=== PATIENT | female | born 1995 | race Caucasian/White ===

== ENCOUNTER → 2016-10-03 | Outpatient (CLI) | payer OTHER ==
[~2016-10-03] MED LIST: ACYCLOVIR800 MG PO; ALBUTEROL200 PUFFS/ IH; BACTRIM DS 8001 TA1 PO; CLARITIN10 MG PO; DEPO-PROVER150 MG/M1 IM; IRON TABLETS325 MG PO; KEFLEX 500MG.500 MG PO; LORTAB 5/500 501 TAB PO; MACROBID100 M3 PO; MOTRIN600 MG PO; MULTI VITAMINS1 TAB PO; NAPROXEN SODIU500 MG PO; PERCOCET 325 MG1 TA4 PO; PRENATAL PLUS1 TA1 PO; Prilosec20 MG PO; SEPTRA DS 800 M1 TAB PO; TESSALON PERLE200 MG PO; ZITHROMAX Z PA250 MG PO
[2016-10-07 11:25] LABS: Gest. Age on Collection Date 18.4; Results REPORT
[2016-10-07 11:26] LABS: AFP Value 38.6; Insulin Dep Diabetes NO; Maternal Age At EDD 23.9; hCG Value 17481
[2016-10-07 11:27] LABS: DIA MoM 2.12; DIA Value 398.19; DSR (Second Trimester) 1 IN 2187; Interpretation SCREEN NEGATIVE; OSBR Risk 1 IN 10000; uE3 MoM 1.34; uE3 Value 1.99
== END ==
LOC: LAB 17:08
PROVIDERS: Obstetrics & Gynecology
DX: Z36 Encounter for antenatal screening of mother (principal)

== ENCOUNTER 2016-11-03 17:44 | Outpatient (CLI) | payer OTHER ==
[~2016-11-03] VITALS: Ht 160 cm; Wt 64.9 kg
[2016-11-03 18:00] VITALS: BP 112/62
[2016-11-03 19:14] LABS: URINE BILIRUBIN - DIPSTICK NEGATIVE (NEG); URINE BLOOD TRACE-INTACT (NEG)
[2016-11-03 19:27] LABS: URINE SQUAMOUS CELLS 20-50 #/hpf (0-5)
--- NOTE | 2016-11-04 07:34 | RADIOLOGY REPORT PS360 ---
US BIOPHYSICAL PROFILE: Indication: QUESTIONABLE RUPTURE OF MEMBRANES ORDERING PHYSICIAN: Isaac Buck MD PATIENT AGE: 21 years FINDINGS: There is a single live fetus present in breech presentation. The placenta is posterior in implantation without previa or abruption. The following parameters are obtained: Average ultrasound age is 22 weeks 5 days. Estimated due date by ultrasound is 03/04/2017. Estimated weight is not estimated BPD: 22 weeks 6 days OFD: 23 weeks 2 days HC: 22 weeks 4 days AC: Not obtained FL: Not obtained heart rate: 149 bpm. Qualitative AFV: 2 breathing movements: 2 Gross body movements: 2 Tone: 2 Biophysical profile score: 8/8 No gross anomalies evident.. This exam is NOT performed as anatomy evaluation. Placenta: Posterior Cervix: Appears closed and measures 3 cm IMPRESSION: Single live fetus in breech presentation at 22 weeks 5 days with normal biophysical profile 8 of 8. Please see above for detail
== END 2016-11-03 19:30 | disposition home or self-care (01) ==
LOC: OBOUT 17:44 → OB 17:44 → OBOUT 19:30
PROVIDERS: Obstetrics & Gynecology
DX: O26.92 Pregnancy related conditions, unspecified, second trimester (principal); Z3A.22 22 weeks gestation of pregnancy; R10.9 Unspecified abdominal pain

== ENCOUNTER → 2016-11-25 | Outpatient (CLI) | payer OTHER, MEDICAID ==
[2016-11-25 17:45] LABS: 1 HR URINE GLUCOSE NEGATIVE mg/ml
[2016-11-25 17:58] LABS: HEMOGLOBIN 11.7 g/dL (12.2-16.2); LYMPH # 2.5 K/mm3 (0.7-4.5); LYMPH % 21.4 % (10-50.0)
== END ==
LOC: LAB 16:13
PROVIDERS: Obstetrics & Gynecology
DX: Z13.1 Encounter for screening for diabetes mellitus (principal)

== ENCOUNTER 2016-12-30 06:47 | Outpatient (CLI) | payer OTHER, MEDICAID ==
[~2016-12-30] VITALS: Ht 160 cm; Wt 68.0 kg
[2016-12-30 07:00] VITALS: BP 104/59
[2016-12-30 08:10] LABS: URINE BILIRUBIN - DIPSTICK NEGATIVE (NEG); URINE BLOOD TRACE-INTACT (NEG)
[2016-12-30 08:33] LABS: URINE SQUAMOUS CELLS 20-50 #/hpf (0-5)
== END 2016-12-30 08:30 | disposition home or self-care (01) ==
LOC: OB 06:47 → OBOUT 06:47
PROVIDERS: Obstetrics & Gynecology
DX: O99.89 Other specified diseases and conditions complicating pregnancy, childbirth and the puerperium (principal); Z3A.30 30 weeks gestation of pregnancy; M79.605 Pain in left leg

== ENCOUNTER → 2017-01-16 | Outpatient (CLI) | payer OTHER, MEDICAID | LOC: LAB 18:05 | DX: Z36.85 Encounter for antenatal screening for Streptococcus B (principal) ==

== ENCOUNTER → 2017-02-24 | Outpatient (CLI) | payer OTHER, MEDICAID ==
[~2017-02-24] MED LIST changes: +FERROUS SULFAT200 M1 PO; +HYDROCODONE-APA1 TA1 PO; +PERCOCET 5/3251 EACH PO
[2017-02-24 09:21] LABS: URINE BILIRUBIN - DIPSTICK NEGATIVE (NEG); URINE BLOOD NEGATIVE (NEG)
[2017-02-24 09:22] LABS: HEMOGLOBIN 10.9 g/dL (12.2-16.2); LYMPH # 2.1 K/mm3 (0.7-4.5); LYMPH % 22.6 % (10-50.0)
[2017-02-24 09:36] LABS: URINE SQUAMOUS CELLS TNTC #/hpf (0-5)
[2017-02-24 12:00] LABS: BUN 4 mg/dL (7-18)
[2017-02-24 12:01] LABS: GFR (ESTIMATED) 124 ML/MIN (59-)
== END ==
LOC: LAB 08:45
PROVIDERS: Obstetrics & Gynecology
DX: Z01.812 Encounter for preprocedural laboratory examination (principal)

== ENCOUNTER 2017-02-27 02:37 | Inpatient (IN) | payer OTHER, MEDICAID ==
[~2017-02-27] VITALS: Ht 157.5 cm; Wt 72.1 kg
[~2017-02-27 02:37] MED LIST changes: -FERROUS SULFAT200 M1 PO; -HYDROCODONE-APA1 TA1 PO; -PERCOCET 5/3251 EACH PO
--- OUTSIDE RECORDS SUMMARY | 2017-02-27 02:50 | External Medical Summary Rpt | CCD ---
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 ON C LO 37 01 02 00 30 30 CL 20 AR Ac RA 20 -2 -1 .0 IN 96 NO ti TA 50 8- 1- 00 IC 83 LD ve DI 34 20 20 NE 67 10 10 PH RI 2 AR CH 10 MA AR CY D MG W TA BL ET AZ 59 01 01 00 6. 5 CL 20 AR Ac IT 76 -1 -2 00 IN 89 NO ti HR 23 5- 8- 0 IC 03 LD ve OM 06 20 20 YC 00 10 10 PH RI IN 1 AR CH MA AR 25 CY D 0 W MG TA BL ET TA 00 01 01 00 10 5 CL 20 AR Ac VT 00 -1 -2 .0 IN 90 NO ti FL 40 9- 8- 00 IC 53 LD ve U 80 20 20 75 08 10 10 PH RI 5 AR CH MG MA AR CY D CA W PS UL E ND 68 01 01 00 30 8 CL 20 AR Ac OM 38 -1 -2 .0 IN 89 NO ti ET 20 5- 8- 00 IC 04 LD ve RAMIREZ 04 20 20 ZI 10 10 10 PH RI NE 1 AR CH MA AR 25 CY D W MG TA BL ET CL 00 01 01 00 3. 3 CL 20 RAMIREZ Ac EO 00 -2 -2 00 IN 92 RP ti CI 97 1- 8- 0 IC 66 EL ve N 66 20 20 10 70 10 10 PH GE 0 1 AR RA MG MA LD CY R VA GI NA L OV UL E CL 00 12 12 00 3. 3 CL 20 RAMIREZ Ac EO 00 -1 -3 00 IN 71 RP ti CI 97 8- 1- 0 IC 02 EL ve N 66 20 20 10 70 09 09 PH GE 0 1 AR RA MG MA LD CY R VA GI NA L OV UL E LI 60 10 12 01 60 7 WA 70 AR Ac ND 43 -2 -1 .0 L- 43 NO ti AN 20 7- 7- 00 MA 08 LD ve E 83 20 20 RT 4 1% 36 09 09 RI 0 PH CH LO AR AR TI MA D ON CY W #5 91 ME 50 11 12 00 8. 2 CL 20 RAMIREZ Ac TR 11 -2 -0 00 IN 53 RP ti ON 10 3- 3- 0 IC 09 EL ve ID 33 20 20 AZ 40 09 09 PH GE OL 1 AR RA E MA LD 50 CY R 0 MG TA BL ET ME 59 11 11 00 21 6 CL 20 HE Ac TH 74 -0 -1 .0 IN 38 ND ti YL 60 2- 9- 00 IC 78 ER ve ND 00 20 20 SO ED 10 09 09 PH N NI 3 AR RO SO MA BE LO CY RT NE W 4 MG DO SE PK 54 11 11 00 30 30 WA 88 AR Ac 45 -1 -1 .0 L- 14 NO ti 80 1- 9- 00 MA 99 LD ve 94 20 20 RT 8 21 09 09 RI 0 PH CH AR AR MA D CY W #5 91 AZ 00 11 11 00 6. 5 WA 70 AR Ac IT 78 -1 -1 00 L- 45 NO ti HR 11 1- 9- 0 MA 20 LD ve OM 49 20 20 RT 9 YC 66 09 09 RI IN 8 PH CH AR AR 25 MA D 0 CY W MG #5 TA 91 BL ET FL 68 11 11 00 1. 1 CL 20 AR Ac UC 46 -0 -1 00 IN 42 NO ti ON 20 6- 9- 0 IC 56 LD ve AZ 10 20 20 OL 34 09 09 PH RI E 0 AR CH 15 MA AR 0 CY D MG W TA BL ET EN 60 11 11 00 20 3 CL 20 HE Ac DO 95 -0 -1 .0 IN 38 ND ti CE 10 2- 9- 00 IC 79 ER ve T 60 20 20 SO 5- 28 09 09 PH N 32 5 AR RO 5 MA BE TA CY RT BL W ET TE 51 11 11 00 45 7 WA 70 AR Ac RC 67 -0 -1 .0 L- 44 NO ti ON 21 7- 9- 00 MA 75 LD ve AZ 30 20 20 RT 0 OL 40 09 09 RI E 6 PH CH 0. AR AR 4% MA D CY W CR EA #5 M 91 AM 00 11 11 00 15 5 CL 20 HE Ac OX 78 -0 -1 .0 IN 38 ND ti IC 12 2- 9- 00 IC 77 ER ve IL 61 20 20 SO LI 30 09 09 PH N N 5 AR RO 50 MA BE 0 CY RT MG W CA PS UL E PE 00 10 11 00 59 1 CL 20 AR Ac RM 47 -2 -0 .0 IN 30 NO ti ET 25 0- 5- 00 IC 70 LD ve HR 24 20 20 IN 26 09 09 PH RI 7 AR CH 1% MA AR CY D LO W TI ON LI 60 10 11 00 60 7 WA 70 AR Ac ND 43 -2 -0 .0 L- 43 NO ti AN 20 7- 5- 00 MA 08 LD ve E 83 20 20 RT 4 1% 36 09 09 RI 0 PH CH LO AR AR TI MA D ON CY W #5 91 64 10 10 00 11 4 CL 20 AR Ac 37 -0 -2 8. IN 20 NO ti 60 5- 2- 00 IC 13 LD ve 72 20 20 0 74 09 09 PH RI 0 AR CH MA AR CY D W CE 00 10 10 00 20 10 CL 20 AR Ac FD 78 -0 -2 .0 IN 20 NO ti IN 12 5- 2- 00 IC 14 LD ve IR 17 20 20 66 09 09 PH RI 30 0 AR CH 0 MA AR MG CY D W CA PS UL E FL 00 10 10 00 5. 5 RI 80 AR Ac UC 17 -1 -2 00 TE 44 NO ti ON 25 6- 2- 0 81 LD ve AZ 41 20 20 AI OL 34 09 09 D RI E 6 PH CH 20 AR AR 0 M D MG #3 W 93 TA 8 BL ET LO 37 10 10 00 30 30 CL 20 AR Ac RA 20 -0 -2 .0 IN 20 NO ti TA 50 5- 2- 00 IC 15 LD ve DI 34 20 20 NE 67 09 09 PH RI 2 AR CH 10 MA AR CY D MG W TA BL ET ND 68 09 10 00 30 8 CL 20 AR Ac OM 38 -3 -0 .0 IN 17 NO ti ET 20 0- 8- 00 IC 18 LD ve RAMIREZ 04 20 20 ZI 10 09 09 PH RI NE 1 AR CH MA AR 25 CY D W MG TA BL ET AZ 00 09 10 00 6. 5 CL 20 AR Ac IT 78 -3 -0 00 IN 17 NO ti HR 11 0- 8- 0 IC 16 LD ve OM 49 20 20 YC 66 09 09 PH RI IN 8 AR CH MA AR 25 CY D 0 W MG TA BL ET NE 24 09 10 00 10 7 CL 20 AR Ac OM 20 -3 -0 .0 IN 17 NO ti YC 80 0- 8- 00 IC 17 LD ve IN 63 20 20 -P 56 09 09 PH RI OL 2 AR CH YM MA AR YX CY D IN W -H C EA R SELF SP PE 00 09 09 00 59 1 CL 20 AR Ac RM 47 -0 -2 .0 IN 03 NO ti ET 25 8- 4- 00 IC 53 LD ve HR 24 20 20 IN 26 09 09 PH RI 7 AR CH 1% MA AR CY D LO W TI ON DI 00 09 09 00 60 30 CL 19 AR Ac CL 78 -0 -1 .0 IN 99 NO ti OF 11 1- 0- 00 IC 29 LD ve EN 78 20 20 AC 90 09 09 PH RI 1 AR CH SO MA AR D CY D EC W 75 MG TA B AZ 00 09 09 00 6. 5 CL 19 AR Ac IT 78 -0 -1 00 IN 99 NO ti HR 11 1- 0- 0 IC 26 LD ve OM 49 20 20 YC 66 09 09 PH RI IN 8 AR CH MA AR 25 CY D 0 W MG TA BL ET ND 37 09 09 00 28 28 CL 19 AR Ac IL 00 -0 -1 .0 IN 99 NO ti OS 00 1- 0- 00 IC 25 LD ve EC 45 20 20 50 09 09 PH RI OT 3 AR CH C MA AR 20 CY D .6 W MG TA BL ET 00 09 09 00 18 6 CL 19 AR Ac 47 -0 -1 0. IN 99 NO ti 21 1- 0- 00 IC 27 LD ve 63 20 20 0 01 09 09 PH RI 6 AR CH MA AR CY D W IB 53 08 09 00 30 10 CL 19 FL Ac UP 74 -2 -1 .0 IN 96 AN ti RO 60 6- 0- 00 IC 16 AG ve FE 46 20 20 AN N 50 09 09 PH 60 1 AR JA 0 MA ME MG CY S P TA BL ET IB 53 07 08 00 30 10 CL 19 FL Ac UP 74 -3 -1 .0 IN 79 AN ti RO 60 0- 3- 00 IC 96 AG ve FE 46 20 20 AN N 50 09 09 PH 60 1 AR JA 0 MA ME MG CY S P TA BL ET 00 07 08 00 10 2 CL 19 FL Ac 40 -2 -1 .0 IN 79 AN ti 60 9- 3- 00 IC 97 AG ve 35 20 20 AN 70 09 09 PH 5 AR JA MA ME CY S P AZ 00 06 07 00 2. 2 WA 70 CL Ac IT 09 -1 -0 00 L- 25 AR ti HR 37 7- 2- 0 MA 01 KE ve OM 16 20 20 RT 0 YC 95 09 09 DE IN 6 PH RE AR K 50 MA J 0 CY MG #5 TA 91 BL ET 00 06 07 00 14 7 WA 70 CL Ac 59 -1 -0 .0 L- 25 AR ti 13 7- 2- 00 MA 01 KE ve 97 20 20 RT 1 05 09 09 DE 0 PH RE AR K MA J CY #5 91 LI 60 06 06 00 60 1 RI 78 MO Ac ND 43 -0 -1 .0 TE 64 SE ti AN 20 1- 8- 00 13 S ve E [address] 1% 46 09 09 D EP 0 PH HE SH AR N AM M A PO #3 O 93 8 CE 68 05 06 00 30 8 CL 19 WR Ac PH 18 -2 -0 .0 IN 41 IG ti AL 00 0- 4- 00 IC 12 HT ve EX 12 20 20 IN 20 09 09 PH AR 1 AR DY 50 MA C 0 CY MG CA PS UL E LI 60 05 05 00 60 1 RI 78 AR Ac ND 43 -0 -2 .0 TE 26 NO ti AN 20 4- 1- 00 51 LD ve E 83 20 20 AI 1% 46 09 09 D RI 0 PH CH SH AR AR AM M D PO #3 W O 93 8 ME 59 05 05 00 21 6 CL 19 AR Ac TH 74 -0 -2 .0 IN 34 NO ti YL 60 9- 1- 00 IC 19 LD ve ND 00 20 20 ED 10 09 09 PH RI NI 3 AR CH SO MA AR LO CY D NE W 4 MG DO SE PK ND 37 04 05 00 28 28 CL 19 AR Ac IL 00 -2 -0 .0 IN 21 NO ti OS 00 0- 7- 00 IC 17 LD ve EC 45 20 20 50 09 09 PH RI OT 3 AR CH C MA AR 20 CY D .6 W MG TA BL ET SE 51 04 05 00 91 91 CL 19 CL Ac 28 -2 -0 .0 IN 22 AR ti ON 50 2- 7- 00 IC 76 KE ve IQ 08 20 20 UE 78 09 09 PH DE 7 AR RE 0. MA K 15 CY J -0 .0 3- 0. 01 TA B LI 60 03 05 01 60 14 RI 77 AR Ac ND 43 -1 -0 .0 TE 53 NO ti AN 20 4- 7- 00 58 LD ve E 83 20 20 AI 1% 36 09 09 D RI 0 PH CH LO AR AR TI M D ON #3 W 93 8 DI 00 05 05 00 12 30 CL 19 CL Ac CY 37 -0 -0 0. IN 28 AR ti CL 81 1- 7- 00 IC 39 KE ve OM 61 20 20 0 IN 00 09 09 PH DE E 1 AR RE 10 MA K CY J MG CA PS UL E PO 51 05 05 00 52 31 CL 19 CL Ac LY 99 -0 -0 7. IN 28 AR ti ET 10 1- 7- 00 IC 38 KE ve HY 45 20 20 0 LE 75 09 09 PH DE NE 7 AR RE MA K GL CY J YC OL 33 50 PO WD PE 45 04 05 00 60 1 CL 19 AR Ac RM 80 -2 -0 .0 IN 23 NO ti ET 20 3- 7- 00 IC 52 LD ve HR 26 20 20 IN 93 09 09 PH RI 7 AR CH 5% MA AR CY D CR W EA M ND 00 04 05 00 30 8 RI 78 AR Ac OM 78 -2 -0 .0 TE 19 NO ti ET 11 8- 7- 00 17 LD ve RAMIREZ 83 20 20 AI ZI 00 09 09 D RI NE 1 PH CH AR AR 25 M D #3 W MG 93 8 TA BL ET DI 00 03 03 00 20 5 CL 19 NO Ac CY 37 -2 -2 .0 IN 00 RF ti CL 81 0- 6- 00 IC 64 LE ve OM 61 20 20 ET IN 00 09 09 PH R E 1 AR 10 MA HE CY NR MG Y CA PS UL E LI 60 03 03 00 60 14 RI 77 AR Ac ND 43 -1 -2 .0 TE 53 NO ti AN 20 4- 6- 00 58 LD ve E 83 20 20 AI 1% 36 09 09 D RI 0 PH CH LO AR AR TI M D ON #3 W 93 8 PE 45 03 03 00 60 1 WA 70 AR Ac RM 80 -0 -2 .0 L- 11 NO ti ET 20 9- 6- 00 MA 44 LD ve HR 26 20 20 RT 7 IN 93 09 09 RI 7 PH CH 5% AR AR MA D CR CY W EA M #5 91 ME 68 01 01 00 30 30 CL 18 NO Ac LO 18 -1 -3 .0 IN 56 RF ti XI 00 3- 0- 00 IC 82 LE ve CA 50 20 20 ET M 10 09 09 PH R 7. 1 AR 5 MA HE MG CY NR Y TA BL ET MU 63 01 01 00 20 5 CL 18 CO Ac CI 82 -2 -3 .0 IN 62 OP ti NE 40 2- 0- 00 IC 97 ER ve X 05 20 20 DM 62 09 09 PH GUSTAVO 0 AR HN ER MA G CY 60 0- 30 MG TA BL ET AZ 50 01 01 00 6. 5 CL 18 CO Ac IT 11 -2 -3 00 IN 62 OP ti HR 10 2- 0- 0 IC 96 ER ve OM 78 20 20 YC 76 09 09 PH GUSTAVO IN 6 AR HN MA G 25 CY 0 MG TA BL ET 64 01 01 00 28 28 CL 18 MU Ac 01 -0 -1 .0 IN 54 LB ti 10 8- 5- 00 IC 07 ER ve 20 20 20 RY 73 09 09 PH 4 AR BR MA IA CY N T QC 63 09 01 01 30 30 CL 17 CO Ac 86 -3 -1 .0 IN 90 OP ti LO 80 0- 5- 00 IC 18 ER ve RA 15 20 20 TA 10 08 09 PH GUSTAVO DI 1 AR HN NE MA G CY 10 MG TA BL ET ND 37 09 01 02 28 28 CL 17 CO Ac IL 00 -3 -1 .0 IN 90 OP ti OS 00 0- 5- 00 IC 19 ER ve EC 45 20 20 50 08 09 PH GUSTAVO OT 3 AR HN C MA G 20 CY .6 MG TA BL ET PE 00 12 01 00 59 1 RI 76 MU Ac RM 47 -2 -1 .0 TE 42 LB ti ET 25 8- 5- 00 36 ER ve HR 24 20 20 AI RY IN 26 08 09 D 7 PH BR 1% AR IA M N LO #3 T TI 93 ON 8 ND 37 09 12 01 30 28 CL 17 CO Ac IL 00 -3 -1 .0 IN 90 OP ti OS 00 0- 8- 00 IC 19 ER ve EC 45 20 20 50 08 08 PH GUSTAVO OT 3 AR HN C MA G 20 CY .6 MG TA BL ET FE 00 12 12 00 30 30 CL 18 RAMIREZ Ac RR 57 -0 -1 .0 IN 31 MM ti OU 40 3- 8- 00 IC 56 ON ve S 60 20 20 D SELF 81 08 08 PH KA LF 0 AR TH MA AR EC CY IN E 32 Y 4 MG TA BL ET 66 11 12 00 24 12 CL 18 MU Ac 99 -2 -0 0. IN 25 LB ti 20 4- 4- 00 IC 34 ER ve 22 20 20 0 RY 00 08 08 PH 4 AR BR MA IA CY N T LI 60 10 11 00 60 1 WA 69 CO Ac ND 43 -2 -0 .0 L- 93 OP ti AN 20 9- 7- 00 MA 24 ER ve E 83 20 20 RT 5 1% 46 08 08 GUSTAVO 0 PH HN SH AR G AM MA PO CY O #5 91 ND 37 09 10 00 30 28 CL 17 No Ac IL 00 -3 -0 .0 IN 90 t ti OS 00 0- 9- 00 IC 19 Av ve EC 45 20 20 ai 50 08 08 PH la OT 3 AR bl C MA e 20 CY .6 MG TA BL ET QC 63 09 10 00 30 30 CL 17 No Ac 86 -3 -0 .0 IN 90 t ti LO 80 0- 9- 00 IC 18 Av ve RA 15 20 20 ai TA 10 08 08 PH la DI 1 AR bl NE MA e CY 10 MG TA BL ET QC 63 08 09 00 30 30 CL 17 No Ac 86 -2 -1 .0 IN 69 t ti LO 80 8- 1- 00 IC 51 Av ve RA 15 20 20 ai TA 10 08 08 PH la DI 1 AR bl NE MA e CY 10 MG TA BL ET 24 08 09 00 40 20 CL 17 No Ac 48 -2 -1 .0 IN 69 t ti 60 8- 1- 00 IC 52 Av ve 60 20 20 ai 21 08 08 PH la 0 AR bl MA e CY ND 37 08 09 00 28 28 CL 17 No Ac IL 00 -2 -1 .0 IN 69 t ti OS 00 8- 1- 00 IC 53 Av ve EC 45 20 20 ai 50 08 08 PH la OT 3 AR bl C MA e 20 CY .6 MG TA BL ET DE 51 06 06 00 15 5 CL 17 No Ac SO 67 -0 -1 .0 IN 21 t ti XI 21 6- 2- 00 IC 34 Av ve ME 27 20 20 ai TA 10 08 08 PH la SO 1 AR bl NE MA e CY 0. 05 % CR EA M NY 00 05 06 00 30 7 CL [address] 16 -2 -0 .0 IN 11 t ti AT 80 1- 5- 00 IC 61 Av ve IN 05 20 20 ai 43 08 08 PH la 10 0 AR bl 0, MA e 00 CY 0 UN IT /G M CR EA M FL 68 05 06 00 1. 1 CL 17 No Ac UC 46 -2 -0 00 IN 11 t ti ON 20 1- 5- 0 IC 62 Av ve AZ 10 20 20 ai OL 34 08 08 PH la E 0 AR bl 15 MA e 0 CY MG TA BL ET ND 37 11 06 02 28 28 CL 15 No Ac IL 00 -2 -0 .0 IN 97 t ti OS 00 8- 5- 00 IC 88 Av ve EC 45 20 20 ai 50 07 08 PH la OT 3 AR bl C MA e 20 CY .6 MG TA BL ET QC 63 01 06 01 30 30 CL 16 No Ac 86 -3 -0 .0 IN 37 t ti LO 80 1- 5- 00 IC 19 Av ve RA 15 20 20 ai TA 10 08 08 PH la DI 1 AR bl NE MA e CY 10 MG TA BL ET 52 05 05 00 10 4 CL 17 No Ac 15 -1 -2 .0 IN 06 t ti 20 3- 2- 00 IC 39 Av ve 00 20 20 ai 30 08 08 PH la 2 AR bl MA e CY 63 05 05 00 14 7 CL 17 No Ac 30 -1 -2 .0 IN 06 t ti 40 3- 2- 00 IC 40 Av ve 51 20 20 ai 80 08 08 PH la 1 AR bl MA e CY 66 04 04 00 24 24 CL 16 No Ac 99 -0 -2 0. IN 83 t ti 20 7- 4- 00 IC 97 Av ve 22 20 20 0 ai 00 08 08 PH la 4 AR bl MA e CY LI 60 03 04 00 60 30 RI 72 No Ac ND 43 -0 -1 .0 TE 35 t ti AN 20 8- 7- 00 49 Av ve E 83 20 20 AI ai 1% 46 08 08 D la 0 PH bl SH AR e AM M PO #3 O 93 8 ME 59 03 04 00 21 6 CL 16 No Ac TH 74 -2 -1 .0 IN 75 t ti YL 60 5- 0- 00 IC 76 Av ve ND 00 20 20 ai ED 10 08 08 PH la NI 3 AR bl SO MA e LO CY NE 4 MG DO SE PK QC 63 01 03 00 30 30 CL 16 No Ac 86 -3 -2 .0 IN 37 t ti LO 80 1- 6- 00 IC 19 Av ve RA 15 20 20 ai TA 10 08 08 PH la DI 1 AR bl NE MA e CY 10 MG TA BL ET ND 37 11 03 01 28 28 CL 15 No Ac IL 00 -2 -2 .0 IN 97 t ti OS 00 8- 6- 00 IC 88 Av ve EC 45 20 20 ai 50 07 08 PH la OT 3 AR bl C MA e 20 CY .6 MG TA BL ET VE 00 01 03 00 18 10 CL 16 No Ac NT 17 -3 -2 .0 IN 37 t ti OL 30 1- 6- 00 IC 18 Av ve IN 68 20 20 ai 22 08 08 PH la HF 0 AR bl A MA e 90 CY MC G IN RAMIREZ LE R LI 60 01 03 00 60 1 CL 16 No Ac ND 43 -3 -2 .0 IN 37 t ti AN 20 1- 6- 00 IC 20 Av ve E 83 20 20 ai 1% 46 08 08 PH la 0 AR bl SH MA e AM CY PO O LI 60 01 03 00 60 1 CL 16 No Ac ND 43 -0 -2 .0 IN 22 t ti AN 20 8- 4- 00 IC 52 Av ve E 83 20 20 ai 1% 46 08 08 PH la 0 AR bl SH MA e AM CY PO O Results Labs Lab Lab Date Result Refere Interp Status Commen Order Detail nces retati t Range on CBC w auto diff (02-24-2017 08:47) Baso % = 0.4 % 0.1-2.0 complet 017 ed 08:47 Automat = 0.0 0-0.2 complet ed 017 K/MM3 ed blood 08:47 basophi l count (count/ vo Automat = 0.1 0.0-0.4 complet ed 017 K/mm3 ed blood 08:47 eosinop hil count Automat = 1.5 % 0.1-12. complet ed 017 0 ed blood 08:47 eosinop hils/10 0 leukocy t Blood = 6.5 1.8-7.8 complet granulo 017 K/mm3 ed cytes 08:47 automat ed count (numb Granulo = 70.0 37.0-80 complet cyte 017 % .0 ed percent 08:47 age Blood = 33.1 37.0-47 complet hematoc 017 % .0 ed rit 08:47 (volume fractio n) Blood = 10.9 12.2-16 complet hemoglo 017 g/dL .2 ed bin 08:47 measure ment (mass/v olum Absolut = 2.1 0.7-4.5 complet e 017 K/mm3 ed lymphoc 08:47 yte count Lymphoc = 22.6 10-50.0 complet yte 017 % ed count, 08:47 blood, automat ed Mean = 29.4 27-31.2 complet corpusc 017 pg ed ular 08:47 hemoglo bin (MCH) determ Automat = 33.1 31.8-35 complet ed 017 g/dl .4 ed erythro 08:47 cyte mean corpusc ular h Automat = 88.8 82.2-97 complet ed 017 fl .8 ed erythro 08:47 cyte mean corpusc ular v Absolut = 0.5 0.1-1.0 complet e 017 K/mm3 ed monocyt 08:47 e count [place] % = 5.5 % 1.7-9.3 complet 017 ed 08:47 Automat = 9.3 7.4-10. complet ed 017 fl 4 ed blood 08:47 platele t mean volume heather Blood = 265 142-424 complet platele 017 K/mm3 ed t count 08:47 Red = 3.73 4.2-5.4 complet blood 017 M/mm3 ed cell 08:47 count Automat = 12.7 11.5-17 complet ed 017 % .5 ed erythro 08:47 cyte distrib ution width Blood = 9.3 4.8-10. complet leukocy 017 K/MM3 8 ed gen 08:47 count (number /volume ) Urinalysis with microscopy (02-24-2017 08:47) Bacteri 3+ 3+ L O complet a 017 ed detecti 08:47 on in urine sedimen t by Urine NEGATIV NEG complet nitrite 017 E ed 08:47 NEGATIV detecti E L on by test strip Urine = 6.5 5.0-8.5 complet pH 017 ed 08:47 Urine = TRACE NEG complet protein 017 mg/dL ed 08:47 measure ment by automat ed t Erythro NONE 0 complet cytes 017 NONE L ed detecti 08:47 rbc/hpf on in urine sedimen t Urine = 1.020 1.005-1 complet specifi 017 .030 ed c 08:47 gravity measure ment [place] TNTC 0-5 complet s 017 TNTC L ed epithel 08:47 #/hpf ial cells detecti on in u Urine 0.2 0.2 NEG complet urobili 017 L ed nogen 08:47 E.U./dL detecti on by test str Urine = OCC O complet leukocy 017 wbc/hpf ed gen 08:47 count (number /volume ) Urine CLEAR CLEAR complet appeara 017 CLEAR L ed nce 08:47 determi nation Urine NEGATIV NEG complet total 017 E ed bilirub 08:47 NEGATIV in E L detecti on by test Urine NEGATIV NEG complet blood 017 E ed detecti 08:47 NEGATIV on E L Urine YELLOW YELLOW complet color 017 YELLOW ed 08:47 L Glucose = NEG complet ur 017 NEGATIV ed test 08:47 E strip Urine NEGATIV NEG complet ketones 017 E ed 08:47 NEGATIV detecti E L on by mg/dL automat ed gen Mucus NEGATIV NEG complet detecti 017 E ed on in 08:47 NEGATIV urine E L sedimen t by lig Comprehensive metabolic panel (02-24-2017 08:47) Serum = 211 46-116 complet or 017 U/L ed plasma 08:47 alkalin e phospha tase heather Serum 2 = 0.5 0.2-1.0 complet or 017 mg/dL ed plasma 08:47 total bilirub in measure m Serum = 4 7-18 complet or 017 mg/dL ed plasma 08:47 urea nitroge n measure men Serum 02-24-2 = 8.3 8.5-10. complet or 017 mg/dL 1 ed plasma 08:47 calcium measure ment (mas Serum = 103 98-107 complet or 017 mmoL/L ed plasma 08:47 chlorid e measure ment (mo Carbon = 24 21.0-32 complet dioxide 017 mmoL/L .0 ed 08:47 measure ment Serum 2 = 0.6 0.55-1. complet or 017 mg/dL 02 ed plasma 08:47 creatin ine measure ment ( Estimat = 124 59- complet ed 017 ML/MIN ed glomeru 08:47 lar filtrat ion rate (GF Comment: REFERENCE RANGE: >60 ML/MIN/1.73 SQUARE METERS Comment: If this patient is -[place], then multiply the Comment: result by 1.210. Serum = 3.4 1.3-3.2 complet globuli 017 gm/dL ed n 08:47 measure ment (mass/v olume) Serum = 71 74-106 complet or 017 mg/dL ed plasma 08:47 glucose measure ment (mas Serum = 4.1 3.5-5.1 complet potassi 017 mmoL/L ed um 08:47 measure ment Serum = 136 136-145 complet sodium 017 mmoL/L ed measure 08:47 ment Serum = 13 15-37 complet or 017 U/L ed plasma 08:47 asparta te aminotr ansfera ALT = 12 12-78 complet (SGPT) 017 U/L ed ser/yoav 08:47 s Protein = 6.1 6.4-8.2 complet total 017 gm/dL ed ser/yoav 08:47 s Serum = 0.8 1.1-1.8 complet or 017 ed plasma 08:47 albumin /globul in mass ra Serum = 2.7 3.4-5.0 complet or 017 gm/dL ed plasma 08:47 albumin measure ment (mas Urinalysis dipstick W Reflex Microscopic panel in Urine (02-24-2017 08:47) Bacteri 02-24-2 3+ O complet a 017 ed [Presen 08:47 ce] in Urine sedimen t by Light microsc opy Erythro 02-24-2 NONE 0 complet cytes 017 ed [Presen 08:47 ce] in Urine sedimen t by Light microsc opy Epithel 02-24-2 TNTC 0#/hp complet ial 017 f - ed cells.s 08:47 5#/hp quamous f [Presen ce] in Urine sedimen t by Microsc opy high power field Urinalysis dipstick W Reflex Microscopic panel in Urine (02-24-2017 08:47) Appeara 02-24-2 CLEAR CLEAR complet nce of 017 ed Urine 08:47 Bilirub 02-24-2 NEGATIV NEG complet in 017 E ed [Presen 08:47 ce] in Urine by Test strip Erythro 02-24-2 NEGATIV NEG complet cytes 017 E ed [Presen 08:47 ce] in Urine Color 02-24-2 YELLOW YELLOW complet of 017 ed Urine 08:47 Ketones -17-2 NEGATIV NEG complet 017 E ed [Presen 08:47 ce] in Urine by Automat ed test strip Mucus -17-2 NEGATIV NEG complet [Presen 017 E ed ce] in 08:47 Urine sedimen t by Light microsc opy Nitrite --2 NEGATIV NEG complet 017 E ed [Presen 08:47 ce] in Urine by Test strip Urobili -17-2 0.2 NEG complet nogen 017 ed [Presen 08:47 ce] in Urine by Test strip Urinalysis with microscopy (02-10-2017 17:58) Comment: Collected by nurse? Y Comment: Hold specimen in OE? N Urine 02-10-2 TURBID CLEAR complet appeara 017 TURBID ed nce 17:58 L determi nation Bacteri 02-10- 4+ 4+ L O complet a 017 ed detecti 17:58 on in urine sedimen t by Urine NEGATIV NEG complet total 017 E ed bilirub 17:58 NEGATIV in E L detecti on by test Urine 3+ 3+ L NEG complet blood 017 ed detecti 17:58 on Urine YELLOW YELLOW complet color 017 YELLOW ed 17:58 L Glucose = NEG complet ur 017 NEGATIV ed test 17:58 E strip Urine NEGATIV NEG complet ketones 017 E ed 17:58 NEGATIV detecti E L on by mg/dL automat ed gen Mucus NEGATIV NEG complet detecti 017 E ed on in 17:58 NEGATIV urine E L sedimen t by lig Mucus 2+ 2+ L OCC complet detecti 017 ed on in 17:58 urine sedimen t by lig Urine NEGATIV NEG complet nitrite 017 E ed 17:58 NEGATIV detecti E L on by test strip Urine = 6.5 5.0-8.5 complet pH 017 ed 17:58 Urine = NEG complet protein 017 NEGATIV ed 17:58 E mg/dL measure ment by automat ed t Erythro 10-20 0 complet cytes 017 10-20 L ed detecti 17:58 on in rbc/hpf urine sedimen t Urine = 1.015 1.005-1 complet specifi 017 .030 ed c 17:58 gravity measure ment [place] 10-20 0-5 complet s 017 10-20 L ed epithel 17:58 #/hpf ial cells detecti on in u Urine 0.2 0.2 NEG complet urobili 017 L ed nogen 17:58 E.U./dL detecti on by test str Urine 10 - 20 O complet leukocy 017 ed gen 17:58 wbc/hpf count (number /volume ) Urinalysis dipstick W Reflex Microscopic panel in Urine (02-10-2017 17:58) Bacteri 4+ O complet a 017 ed [Presen 17:58 ce] in Urine sedimen t by Light microsc opy Mucus 2+ OCC complet [Presen 017 ed ce] in 17:58 Urine sedimen t by Light microsc opy Erythro -- 10-20 0 complet cytes 017 ed [Presen 17:58 ce] in Urine sedimen t by Light microsc opy Epithel 02-10- 10-20 0#/hp complet ial 017 f - ed cells.s 17:58 5#/hp quamous f [Presen ce] in Urine sedimen t by Microsc opy high power field Leukocy 02-10- 10-20 O complet gen 017 wbc/hpf ed [#/volu 17:58 me] in Urine Urinalysis dipstick W Reflex Microscopic panel in Urine (02-10-2017 17:58) [place]ara TURBID CLEAR complet nce of 017 ed Urine 17:58 Bilirub NEGATIV NEG complet in 017 E ed [Presen 17:58 ce] in Urine by Test strip Erythro 3+ NEG Abnorma complet cytes 017 l ed [Presen 17:58 ce] in Urine Color YELLOW YELLOW complet of 017 ed Urine 17:58 Ketones NEGATIV NEG complet 017 E ed [Presen 17:58 ce] in Urine by Automat ed test strip Mucus NEGATIV NEG complet [Presen 017 E ed ce] in 17:58 Urine sedimen t by Light microsc opy Nitrite NEGATIV NEG complet 017 E ed [Presen 17:58 ce] in Urine by Test strip Urobili 0.2 NEG complet nogen 017 ed [Presen 17:58 ce] in Urine by Test strip Urinalysis dipstick W Reflex Microscopic panel in Urine (12-30-2016 07:11) Amorpho 12-30-2 2+ NONE complet us 017 ed sedimen 07:11 t [Presen ce] in Urine sedimen t by Light microsc opy Bacteri 12-30-2 2+ O complet a 017 ed [Presen 07:11 ce] in Urine sedimen t by Light microsc opy Epithel 12-30-2 20-50 0#/hp complet ial 017 f - ed cells.s 07:11 5#/hp quamous f [Presen ce] in Urine sedimen t by Microsc opy high power field Leukocy 10-20 O complet gen 017 wbc/hpf ed [#/volu 07:11 me] in Urine Urinalysis dipstick W Reflex Microscopic panel in Urine (12-30-2016 07:11) Appeara CLOUDY CLEAR complet nce of 017 ed Urine 07:11 Bilirub NEGATIV NEG complet in 017 E ed [Presen 07:11 ce] in Urine by Test strip Erythro TRACE-I NEG complet cytes 017 NTACT ed [Presen 07:11 ce] in Urine Color YELLOW YELLOW complet of 017 ed Urine 07:11 Ketones NEGATIV NEG complet 017 E ed [Presen 07:11 ce] in Urine by Automat ed test strip Mucus 3+ NEG Abnorma complet [Presen 017 l ed ce] in 07:11 Urine sedimen t by Light microsc opy Nitrite NEGATIV NEG complet 017 E ed [Presen 07:11 ce] in Urine by Test strip Urobili 0.2 NEG complet nogen 017 ed [Presen 07:11 ce] in Urine by Test strip Glucose [Presence] in Urine by Test strip --1 hour post 75 g glucose PO (11-25-2016 16:13) Glucose NEGATIV complet 017 E ed [Presen 16:13 ce] in Urine by Test strip Glucose TNP complet 017 ed [Presen 16:13 ce] in Urine by Automat ed test strip Fasting TNP 60mg/ complet 017 dL - ed glucose 16:13 105mg /dL [Mass/v olume] in Serum or Plasma [id number]-Dheluygsaakjl.placental [Presence] in Vaginal fluid (11-03-2016 18:07) Alpha-1 NEGATIV complet -Microg 017 E FOR ed lobulin 18:07 RUPTURE .placen walter [Presen ce] in Vaginal fluid Urinalysis dipstick W Reflex Microscopic panel in Urine (11-03-2016 17:54) Bacteri 4+ O complet a 017 ed [Presen 17:54 ce] in Urine sedimen t by Light microsc opy Erythro 3-5 0 complet cytes 017 ed [Presen 17:54 ce] in Urine sedimen t by Light microsc opy Epithel 20-50 0#/hp complet ial 017 f - ed cells.s 17:54 5#/hp quamous f [Presen ce] in Urine sedimen t by Microsc opy high power field Leukocy 10-20 O complet gen 017 wbc/hpf ed [#/volu 17:54 me] in Urine Urinalysis dipstick W Reflex Microscopic panel in Urine (11-03-2016 17:54) Appeara CLEAR CLEAR complet nce of 017 ed Urine 17:54 Bilirub NEGATIV NEG complet in 017 E ed [Presen 17:54 ce] in Urine by Test strip Erythro TRACE-I NEG complet cytes 017 NTACT ed [Presen 17:54 ce] in Urine Color YELLOW YELLOW complet of 017 ed Urine 17:54 Ketones NEGATIV NEG complet 017 E ed [Presen 17:54 ce] in Urine by Automat ed test strip Mucus 3+ NEG Abnorma complet [Presen 017 l ed ce] in 17:54 Urine sedimen t by Light microsc opy Nitrite NEGATIV NEG complet 017 E ed [Presen 17:54 ce] in Urine by Test strip Urobili 0.2 NEG complet nogen 017 ed [Presen 17:54 ce] in Urine by Test strip Procedures Procedure DOS Code Location Performer Comment EXCISION 544 [facility]UCEDA OR 1 [facility] DESTRUCTI INC INC ON OF PERITONEA L TISSUE Encounters Encounter Start End Date Code Location Per[facility] Type Date [facility] 5 [facility] OUTPATIEN [facility] KOMAL - 2 2 [facility]PATI[facility] KOMAL - 2 2 [facility]PATI[facility] KOMAL - 2 2 [facility] KOMAL - 1 1 [facility] KOMAL - 1 1 [facility]IVERS[facility] - 1 1 [facility] - 1 [facility]
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
--- OUTSIDE RECORDS SUMMARY | 2017-02-27 03:02 | External Medical Summary Rpt | CCD ---
Author Author , BRIAN TORRES Address Unknown Phone [email or web address] Immunization Name Date Rout CVX Reac Dose Comm Prov Is Faci e tion ent ider Refu lity Give sed n Tdap 03- 115 999 Hist H149 No H149 , 8-20 oric Adso 14 al rbed Info rmat ion - Sour ce Unsp ecif ied True - 2 999 Hist H149 No H149 o-OP 5-19 oric V 98 al Info rmat ion - Sour ce Unsp ecif ied DTaP - 107 999 Hist H149 No H149 , UF 5-19 oric 98 al Info rmat ion - Sour ce Unsp ecif ied MMR 01- 3 999 Hist H149 No H149 5-19 oric 98 al Info rmat ion - Sour ce Unsp ecif ied
--- OUTSIDE RECORDS SUMMARY | 2017-02-27 03:02 | External Medical Summary Rpt | CCD ---
Author Author , BRIAN TORRES Address Unknown Phone [email or web address] Immunization Name Date Rout CVX Reac Dose [...]
--- OUTSIDE RECORDS SUMMARY | 2017-02-27 03:03 | External Medical Summary Rpt ---
Author Author BRIAN Riojas, [employer] Address Unknown Phone Unavailable Results Comprehensive metabolic 2000 panel in Serum or Plasma Observa Value Referen Units Interpr Notes Date tion ce etation Range Albumin/G 1.1 - 1.8 No Low No Feb 24 lobulin informati informati 2016 8:47 [Mass on in on in AM ratio] in source source Serum or data data Plasma Albumin 3.4 - 5.0 gm/dL Low No Feb 24 [Mass/vol informati 2016 8:47 ume] in on in AM Serum or source Plasma data Alkaline 46 - 116 U/L High No Feb 24 phosphata informati 2016 8:47 se on in AM [Enzymati source c data activity/ volume] in Serum or Plasma Bilirubin 0.2 - 1.0 mg/dL Normal No Feb 24 .total informati 2016 8:47 [Mass/vol on in AM ume] in source Serum or data Plasma Urea 7 - 18 mg/dL Low No Feb 24 nitrogen informati 2016 8:47 [Mass/vol on in AM ume] in source Serum or data Plasma Calcium 8.5 - mg/dL Low No Feb 24 [Mass/vol 10.1 informati 2016 8:47 ume] in on in AM Serum or source Plasma data Chloride 98 - 107 mmoL/L Normal No Feb 24 [Moles/vo informati 2016 8:47 lume] in on in AM Serum or source Plasma data Carbon 21.0 - mmoL/L Normal No Feb 24 dioxide, 32.0 informati 2016 8:47 total on in AM [Moles/vo source lume] in data Serum or Plasma Creatinin 0.55 - mg/dL Normal No Feb 24 e 1.02 informati 2016 8:47 [Mass/vol on in AM ume] in source Serum or data Plasma Estimated 59- ML/MIN No REFERENCE Feb 24 informati RANGE: 2017 8:47 glomerula on in >60 AM r source ML/MIN/1. filtratio data 73 SQUARE n rate METERSIf (GF this patient is -A merican, then multiply theresult by 1.210. Globulin 1.3 - 3.2 gm/dL High No Feb 24 [Mass/vol informati 2016 8:47 ume] in on in AM Serum source data Glucose 74 - 106 mg/dL Low No Feb 24 [Mass/vol informati 2016 8:47 ume] in on in AM Serum or source Plasma data Potassium 3.5 - 5.1 mmoL/L Normal No Feb 242016 8:47 [Moles/vo on in AM lume] in source Serum or data Plasma Sodium 136 - 145 mmoL/L Normal No Feb 24 [Moles/vo informati 2016 8:47 lume] in on in AM Serum or source Plasma data Aspartate 15 - 37 U/L Low No Feb 242016 8:47 aminotran on in AM sferase source [Enzymati data c activity/ volume] in Serum or Plasma Alanine 12 - 78 U/L Normal Feb 24 aminotran ati 2016 8:47 sferase on in AM [Enzymati source c data activity/ volume] in Serum or Plasma Protein 6.4 - 8.2 gm/dL Low No Feb 24 [Mass/vol informati 2016 8:47 ume] in on in AM Serum or source Plasma data Urinalysis dipstick W Reflex Microscopic panel in Urine Observa Value Referen Units Interpr Notes Date tion ce etation Range Appeara CLEAR CLEAR No No No Feb 24 nce of informa informa informa 2016 Urine tion in tion in tion in 8:47 AM source source source data data data Bacteri 3+ O No No No Feb 24 a informa informa informa 2016 [Presen tion in tion in tion in 8:47 AM ce] in source source source Urine data data data sedimen t by Light microsc opy Bilirub NEGATIV NEG No No No Feb 24 in E informa informa informa 2016 [Presen tion in tion in tion in 8:47 AM ce] in source source source Urine data data data by Test strip Erythro NEGATIV NEG No No No Feb 24 cytes E informa informa informa 2016 [Presen tion in tion in tion in 8:47 AM ce] in source source source Urine data data data Color YELLOW YELLOW No No No Feb 24 of informa informa informa 2017 Urine tion in tion in tion in 8:47 AM source source source data data data Glucose NEG No No No Feb 24 [Mass/vol informati informati informati 2016 8:47 ume] in on in on in on in AM Urine by source source source Test data data data strip Ketones NEGATIV NEG mg/dL No No Feb 24 E informa informa 2016 [Presen tion in tion in 8:47 AM ce] in source source Urine data data by Automat ed test strip Mucus NEGATIV NEG No No No Feb 24 [Presen E informa informa informa 2016 ce] in tion in tion in tion in 8:47 AM Urine source source source sedimen data data data t by Light microsc opy Nitrite NEGATIV NEG No No No Feb 24 E informa informa informa 2016 [Presen tion in tion in tion in 8:47 AM ce] in source source source Urine data data data by Test strip pH of 5.0 - 8.5 No Normal No Feb 24 Urine informati informati 2016 8:47 on in on in AM source source data data Protein NEG mg/dL High No Feb 24 [Mass/vol informati 2016 8:47 ume] in on in AM Urine by source Automated data test strip Erythro NONE 0 rbc/hpf No No Feb 24 cytes informa informa 2016 [Presen tion in tion in 8:47 AM ce] in source source Urine data data sedimen t by Light microsc opy Specific 1.005 - No Normal No Feb 24 gravity 1.030 informati informati 2017 8:47 of Urine on in on in AM source source data data Epithel TNTC 0 - 5 #/hpf No No Feb 24 ial informa informa 2017 cells.s tion in tion in 8:47 AM quamous source source data data [Presen ce] in Urine sedimen t by Microsc opy high power field Urobili 0.2 NEG E.U./dL No No Feb 17 nogen informa informa 2016 [Presen tion in tion in 8:47 AM ce] in source source Urine data data by Test strip Leukocyte O wbc/hpf No No Feb 17 s informati informati 2017 8:47 [#/volume on in on in AM ] in source source Urine data data Urinalysis dipstick W Reflex Microscopic panel in Urine Observa Value Referen Units Interpr Notes Date tion ce etation Range Appeara CLEAR CLEAR No No No Feb 17 nce of informa informa informa 2016 Urine tion in tion in tion in 8:47 AM source source source data data data Bilirub NEGATIV NEG No No No Feb 24 in E informa informa informa 2016 [Presen tion in tion in tion in 8:47 AM ce] in source source source Urine data data data by Test strip Erythro NEGATIV NEG No No No Feb 24 cytes E informa informa informa 2016 [Presen tion in tion in tion in 8:47 AM ce] in source source source Urine data data data Color YELLOW YELLOW No No No Feb 24 of informa informa informa 2016 Urine tion in tion in tion in 8:47 AM source source source data data data Glucose NEG No No No Feb 24 [Mass/vol informati informati informati 2016 8:47 ume] in on in on in on in AM Urine by source source source Test data data data strip Ketones NEGATIV NEG mg/dL No No Feb 24 E informa informa 2016 [Presen tion in tion in 8:47 AM ce] in source source Urine data data by Automat ed test strip Mucus NEGATIV NEG No No No Feb 24 [Presen E informa informa informa 2016 ce] in tion in tion in tion in 8:47 AM Urine source source source sedimen data data data t by Light microsc opy Nitrite NEGATIV NEG No No No Feb 24 E informa informa informa 2016 [Presen tion in tion in tion in 8:47 AM ce] in source source source Urine data data data by Test strip pH of 5.0 - 8.5 No Normal No Nov 17 Urine informati informati 2017 8:47 on in on in AM source source data data Protein NEG mg/dL High No Feb 17 [Mass/vol informati 2016 8:47 ume] in on in AM Urine by source Automated data test strip Specific 1.005 - No Normal No Feb 17 gravity 1.030 informati informati 2017 8:47 of Urine on in on in AM source source data data Urobili 0.2 NEG E.U./dL No No Feb 24 nogen informa informa 2016 [Presen tion in tion in 8:47 AM ce] in source source Urine data data by Test strip CBC W Auto Differential panel in Blood Observa Value Referen Units Interpr Notes Date tion ce etation Range Basophils 0 - 0.2 K/MM3 Normal No Feb 24 informati 2016 8:47 [#/volume on in AM ] in source Blood by data Automated count Basophils 0.1 - 2.0 % Normal No Feb 24 /100 informati 2016 8:47 leukocyte on in AM s in source Blood by data Automated count Eosinophi 0.0 - 0.4 K/mm3 Normal No Feb 24 ls informati 2016 8:47 [#/volume on in AM ] in source Blood by data Automated count Eosinophi 0.1 - % Normal No Feb 24 ls/100 12.0 informati 2016 8:47 leukocyte on in AM s in source Blood by data Automated count Granulocy 1.8 - 7.8 K/mm3 Normal No Feb 24 gen informati 2016 8:47 [#/volume on in AM ] in source Blood by data Automated count Granulocy 37.0 - % Normal No Feb 24 gen/100 80.0 informati 2016 8:47 leukocyte on in AM s in source Blood by data Automated count Hematocri 37.0 - % Low No Feb 24 t [Volume 47.0 informati 2016 8:47 on in AM Fraction] source of Blood data Hemoglobi 12.2 - g/dL Low No Feb 24 n 16.2 informati 2016 8:47 [Mass/vol on in AM ume] in source Blood data Lymphocyt 0.7 - 4.5 K/mm3 Normal No Feb 24 es informati 2016 8:47 [#/volume on in AM ] in source Unspecifi data ed specimen by Automated count Lymphocyt 10 - 50.0 % Normal No Feb 24 es informati 2016 8:47 [#/volume on in AM ] in source Unspecifi data ed specimen by Automated count Erythrocy 27 - 31.2 pg Normal No Feb 24 te mean informati 2016 8:47 corpuscul on in AM ar source hemoglobi data n [Entitic mass] Erythrocy 31.8 - g/dl Normal No Feb 24 te mean 35.4 informati 2016 8:47 corpuscul on in AM ar source hemoglobi data n concentra tion [Mass/vol ume] by Automated count Erythrocy 82.2 - fl Normal No Feb 24 te mean 97.8 informati 2016 8:47 corpuscul on in AM ar volume source [Entitic data volume] by Automated count Monocytes 0.1 - 1.0 K/mm3 Normal No Feb 24 informati 2016 8:47 [#/volume on in AM ] in source Blood by data Automated count Monocytes 1.7 - 9.3 % Normal No Feb 24 /100 informati 2016 8:47 leukocyte on in AM s in source Blood by data Automated count Platelet 7.4 - fl Normal No Feb 24 mean 10.4 informati 2016 8:47 volume on in AM [Entitic source volume] data in Blood by Automated count Platelets 142 - 424 K/mm3 Normal No Feb 24 informati 2016 8:47 [#/volume on in AM ] in source Blood data Erythrocy 4.2 - 5.4 M/mm3 Low No Feb 24 gen informati 2016 8:47 [#/volume on in AM ] in source Amniotic data fluid Erythrocy 11.5 - % Normal Feb 24 te 17.5 informati 2016 8:47 distribut on in AM ion width source [Entitic data volume] by Automated count Leukocyte 4.8 - K/MM3 Normal No Feb 24 s 10.8 informati 2016 8:47 [#/volume on in AM ] in source Blood data Urinalysis dipstick W Reflex Microscopic panel in Urine Observa Value Referen Units Interpr Notes Date tion ce etation Range Collected by nurse? Y Hold specimen in OE? N Appeara TURBID CLEAR No No No Feb 3 nce of informa informa informa 2016 Urine tion in tion in tion in 5:58 PM source source source data data data Bacteri 4+ O No No No Feb 10 a informa informa informa 2016 [Presen tion in tion in tion in 5:58 PM ce] in source source source Urine data data data sedimen t by Light microsc opy Bilirub NEGATIV NEG No No No Feb 3 in E informa informa informa 2016 [Presen tion in tion in tion in 5:58 PM ce] in source source source Urine data data data by Test strip Erythro 3+ NEG No Abnorma No Feb 10 cytes informa l informa 2017 [Presen tion in tion in 5:58 PM ce] in source source Urine data data Color YELLOW YELLOW No No No Nov 3 of informa informa informa 2017 Urine tion in tion in tion in 5:58 PM source source source data data data Glucose NEG No No No Nov 3 [Mass/vol informati informati informati 2017 5:58 ume] in on in on in on in PM Urine by source source source Test data data data strip Ketones NEGATIV NEG mg/dL No No Nov 3 E informa informa 2017 [Presen tion in tion in 5:58 PM ce] in source source Urine data data by Automat ed test strip Mucus NEGATIV NEG No No No Nov 3 [Presen E informa informa informa 2017 ce] in tion in tion in tion in 5:58 PM Urine source source source sedimen data data data t by Light microsc opy Mucus 2+ OCC No No No Nov 3 [Presen informa informa informa 2017 ce] in tion in tion in tion in 5:58 PM Urine source source source sedimen data data data t by Light microsc opy Nitrite NEGATIV NEG No No No Nov 3 E informa informa informa 2017 [Presen tion in tion in tion in 5:58 PM ce] in source source source Urine data data data by Test strip pH of 5.0 - 8.5 No Normal No Nov 3 Urine informati informati 2017 5:58 on in on in PM source source data data Protein NEG mg/dL No No Nov 3 [Mass/vol informati informati 2017 5:58 ume] in on in on in PM Urine by source source Automated data data test strip Erythro 10-20 0 rbc/hpf No No Nov 3 cytes informa informa 2017 [Presen tion in tion in 5:58 PM ce] in source source Urine data data sedimen t by Light microsc opy Specific 1.005 - No Normal No Nov 3 gravity 1.030 informati informati 2017 5:58 of Urine on in on in PM source source data data Epithel 10-20 0 - 5 #/hpf No No Nov 3 ial informa informa 2017 cells.s tion in tion in 5:58 PM quamous source source data data [Presen ce] in Urine sedimen t by Microsc opy high power field Urobili 0.2 NEG E.U./dL No No Nov 3 nogen informa informa 2016 [Presen tion in tion in 5:58 PM ce] in source source Urine data data by Test strip Leukocy [10 O wbc/hpf No No Nov 3 gen wbc/hpf informa informa 2016 [#/volu ; 20 tion in tion in 5:58 PM me] in wbc/hpf source source Urine ] data data Urinalysis dipstick W Reflex Microscopic panel in Urine Observa Value Referen Units Interpr Notes Date tion ce etation Range Collected by nurse? Y Hold specimen in OE? N Appeara TURBID CLEAR No No No Nov 3 nce of informa informa informa 2016 Urine tion in tion in tion in 5:58 PM source source source data data data Bilirub NEGATIV NEG No No No Nov 3 in E informa informa informa 2016 [Presen tion in tion in tion in 5:58 PM ce] in source source source Urine data data data by Test strip Erythro 3+ NEG No Abnorma No Nov 3 cytes informa l informa 2016 [Presen tion in tion in 5:58 PM ce] in source source Urine data data Color YELLOW YELLOW No No No Nov 3 of informa informa informa 2016 Urine tion in tion in tion in 5:58 PM source source source data data data Glucose NEG No No No Nov 3 [Mass/vol informati informati informati 2016 5:58 ume] in on in on in on in PM Urine by source source source Test data data data strip Ketones NEGATIV NEG mg/dL No No Nov 3 E informa informa 2016 [Presen tion in tion in 5:58 PM ce] in source source Urine data data by Automat ed test strip Mucus NEGATIV NEG No No No Nov 3 [Presen E informa informa informa 2016 ce] in tion in tion in tion in 5:58 PM Urine source source source sedimen data data data t by Light microsc opy Nitrite NEGATIV NEG No No No Nov 3 E informa informa informa 2016 [Presen tion in tion in tion in 5:58 PM ce] in source source source Urine data data data by Test strip pH of 5.0 - 8.5 No Normal No Nov 3 Urine informati informati 2017 5:58 on in on in PM source source data data Protein NEG mg/dL No No Feb 3 [Mass/vol informati informati 2016 5:58 ume] in on in on in PM Urine by source source Automated data data test strip Specific 1.005 - No Normal No Nov 3 gravity 1.030 informati informati 2017 5:58 of Urine on in on in PM source source data data Urobili 0.2 NEG E.U./dL No No Feb 3 nogen informa informa 2017 [Presen tion in tion in 5:58 PM ce] in source source Urine data data by Test strip Urinalysis dipstick W Reflex Microscopic panel in Urine Observa Value Referen Units Interpr Notes Date tion ce etation Range Collected by nurse? Y Hold specimen in OE? N Appeara CLOUDY CLEAR No No No Sep nce of informa informa informa 2017 Urine tion in tion in tion in 7:11 AM source source source data data data Amorpho 2+ NONE No No No Dec 30 us informa informa informa 2017 sedimen tion in tion in tion in 7:11 AM t source source source [Presen data data data ce] in Urine sedimen t by Light microsc opy Bacteri 2+ O No No No Dec 30 a informa informa informa 2016 [Presen tion in tion in tion in 7:11 AM ce] in source source source Urine data data data sedimen t by Light microsc opy Bilirub NEGATIV NEG No No No Dec 30 in E informa informa informa 2016 [Presen tion in tion in tion in 7:11 AM ce] in source source source Urine data data data by Test strip Erythro TRACE-I NEG No No No Dec 30 cytes NTACT informa informa informa 2017 [Presen tion in tion in tion in 7:11 AM ce] in source source source Urine data data data Color YELLOW YELLOW No No No Sep of informa informa informa 2017 Urine tion in tion in tion in 7:11 AM source source source data data data Glucose NEG No No No Dec 22 [Mass/vol informati informati informati 2017 7:11 ume] in on in on in on in AM Urine by source source source Test data data data strip Ketones NEGATIV NEG mg/dL No No Sep 22 E informa informa 2016 [Presen tion in tion in 7:11 AM ce] in source source Urine data data by Automat ed test strip Mucus 3+ NEG No Abnorma No Sep 22 [Presen informa l informa 2016 ce] in tion in tion in 7:11 AM Urine source source sedimen data data t by Light microsc opy Nitrite NEGATIV NEG No No No Sep 22 E informa informa informa 2016 [Presen tion in tion in tion in 7:11 AM ce] in source source source Urine data data data by Test strip pH of 5.0 - 8.5 No Normal No Sep 22 Urine informati informati 2017 7:11 on in on in AM source source data data Protein NEG mg/dL No No Sep 22 [Mass/vol informati informati 2017 7:11 ume] in on in on in AM Urine by source source Automated data data test strip Specific 1.005 - No Normal No Sep 22 gravity 1.030 informati informati 2017 7:11 of Urine on in on in AM source source data data Epithel 20-50 0 - 5 #/hpf No No Sep 22 ial informa informa 2017 cells.s tion in tion in 7:11 AM quamous source source data data [Presen ce] in Urine sedimen t by Microsc opy high power field Urobili 0.2 NEG E.U./dL No No Sep 22 nogen informa informa 2016 [Presen tion in tion in 7:11 AM ce] in source source Urine data data by Test strip Leukocy [10 O wbc/hpf No No Sep 22 gen wbc/hpf informa informa 2017 [#/volu ; 20 tion in tion in 7:11 AM me] in wbc/hpf source source Urine ] data data Urinalysis dipstick W Reflex Microscopic panel in Urine Observa Value Referen Units Interpr Notes Date tion ce etation Range Collected by nurse? Y Hold specimen in OE? N Appeara CLOUDY CLEAR No No No Sep 22 nce of informa informa informa 2017 Urine tion in tion in tion in 7:11 AM source source source data data data Bilirub NEGATIV NEG No No No Sep 22 in E informa informa informa 2017 [Presen tion in tion in tion in 7:11 AM ce] in source source source Urine data data data by Test strip Erythro TRACE-I NEG No No No Sep 22 cytes NTACT informa informa informa 2016 [Presen tion in tion in tion in 7:11 AM ce] in source source source Urine data data data Color YELLOW YELLOW No No No Sep 22 of informa informa informa 2017 Urine tion in tion in tion in 7:11 AM source source source data data data Glucose NEG No No No Sep 22 [Mass/vol informati informati informati 2017 7:11 ume] in on in on in on in AM Urine by source source source Test data data data strip Ketones NEGATIV NEG mg/dL No No Sep 22 E informa informa 2016 [Presen tion in tion in 7:11 AM ce] in source source Urine data data by Automat ed test strip Mucus 3+ NEG No Abnorma No Sep 22 [Presen informa l informa 2016 ce] in tion in tion in 7:11 AM Urine source source sedimen data data t by Light microsc opy Nitrite NEGATIV NEG No No No Sep 22 E informa informa informa 2016 [Presen tion in tion in tion in 7:11 AM ce] in source source source Urine data data data by Test strip pH of 5.0 - 8.5 No Normal No Sep 22 Urine informati informati 2017 7:11 on in on in AM source source data data Protein NEG mg/dL No No Sep 22 [Mass/vol informati informati 2017 7:11 ume] in on in on in AM Urine by source source Automated data data test strip Specific 1.005 - No Normal No Sep 22 gravity 1.030 informati informati 2017 7:11 of Urine on in on in AM source source data data Urobili 0.2 NEG E.U./dL No No Sep 22 nogen informa informa 2017 [Presen tion in tion in 7:11 AM ce] in source source Urine data data by Test strip Fibronectin. [Mass/volume] in Vaginal fluid Observa Value Referen Units Interpr Notes Date tion ce etation Range Fibronect NEGATIVE No No Sep 22 in. informati informati FIBRONECT 2017 7:11 [Mass/vol on in on in IN AM ume] in source source INTERPRET Vaginal data data ATION:Sym fluid ptomatic women: There is an increased risk of deliveryw ithin 14 days for positive results obtained between 24weeks and 34 weeks,6 days of gestation .Asymptom atic women: There is an increased risk of deliverya t less than 35 weeks for positive results obtained [id number] weeks and 30 weeks,6 days of gestation . CBC W Auto Differential panel in Blood Observa Value Referen Units Interpr Notes Date tion ce etation Range Basophils 0 - 0.2 K/MM3 Normal No Nov 18 informati 2016 4:13 [#/volume on in PM ] in source Blood by data Automated count Basophils 0.1 - 2.0 % Normal No Nov 18 /100 informati 2017 4:13 leukocyte on in PM s in source Blood by data Automated count Eosinophi 0.0 - 0.4 K/mm3 Normal No Nov 25 ls informati 2016 4:13 [#/volume on in PM ] in source Blood by data Automated count Eosinophi 0.1 - % Normal No Nov 25 ls/100 12.0 informati 2017 4:13 leukocyte on in PM s in source Blood by data Automated count Granulocy 1.8 - 7.8 K/mm3 High No Nov 18 gen informati 2017 4:13 [#/volume on in PM ] in source Blood by data Automated count Granulocy 37.0 - % Normal No Nov 25 gen/100 80.0 informati 2016 4:13 leukocyte on in PM s in source Blood by data Automated count Hematocri 37.0 - % Low No Nov 25 t [Volume 47.0 informati 2017 4:13 on in PM Fraction] source of Blood data Hemoglobi 12.2 - g/dL Low No Nov 25 n 16.2 informati 2017 4:13 [Mass/vol on in PM ume] in source Blood data Lymphocyt 0.7 - 4.5 K/mm3 Normal No Nov 25 es informati 2016 4:13 [#/volume on in PM ] in source Unspecifi data ed specimen by Automated count Lymphocyt 10 - 50.0 % Normal No Nov 25 es informati 2016 4:13 [#/volume on in PM ] in source Unspecifi data ed specimen by Automated count Erythrocy 27 - 31.2 pg High No Nov 25 te mean informati 2016 4:13 corpuscul on in PM ar source hemoglobi data n [Entitic mass] Erythrocy 31.8 - g/dl Normal No Nov 25 te mean 35.4 informati 2016 4:13 corpuscul on in PM ar source hemoglobi data n concentra tion [Mass/vol ume] by Automated count Erythrocy 82.2 - fl Normal No Nov 25 te mean 97.8 informati 2016 4:13 corpuscul on in PM ar volume source [Entitic data volume] by Automated count Monocytes 0.1 - 1.0 K/mm3 Normal No Nov 25 informati 2016 4:13 [#/volume on in PM ] in source Blood by data Automated count Monocytes 1.7 - 9.3 % Normal No Nov 25 /100 informati 2016 4:13 leukocyte on in PM s in source Blood by data Automated count Platelet 7.4 - fl Normal No Nov 25 mean 10.4 informati 2016 4:13 volume on in PM [Entitic source volume] data in Blood by Automated count Platelets 142 - 424 K/mm3 Normal No Nov 252016 4:13 [#/volume on in PM ] in source Blood data Erythrocy 4.2 - 5.4 M/mm3 Low No Nov 25 gen informati 2017 4:13 [#/volume on in PM ] in source Amniotic data fluid Erythrocy 11.5 - % Normal No Nov 25 te 17.5 informati 2016 4:13 distribut on in PM ion width source [Entitic data volume] by Automated count Leukocyte 4.8 - K/MM3 High No Nov 25 s 10.8 informati 2016 4:13 [#/volume on in PM ] in source Blood data Glucose [Presence] in Urine by Test strip --1 hour post 75 g glucose PO Observa Value Referen Units Interpr Notes Date tion ce etation Range Glucose No mg/dL No No Nov 25 [Mass/vol informati informati informati 2016 4:13 ume] in on in on in on in PM Serum or source source source Plasma data data data --1 hour post dose glucose Glucose NEGATIV No mg/ml No No Nov 25 E informa informa informa 2016 [Presen tion in tion in tion in 4:13 PM ce] in source source source Urine data data data by Test strip Glucose TNP No mg/dL No No Nov 25 informa informa informa 2016 [Presen tion in tion in tion in 4:13 PM ce] in source source source Urine data data data by Automat ed test strip Fasting TNP 60 - mg/dL No No Nov 25 105 informa informa 2017 glucose tion in tion in 4:13 PM source source [Mass/v data data olume] in Serum or Plasma [id number].placental [Presence] in Vaginal fluid Observa Value Referen Units Interpr Notes Date tion ce etation Range Alpha-1 NEGATIV No No No No Nov 03 -Microg E FOR informa informa informa informa 2017 lobulin RUPTURE tion in tion in tion in tion in 6:07 PM .placen source source source source walter data data data data [Presen ce] in Vaginal fluid Urinalysis dipstick W Reflex Microscopic panel in Urine Observa Value Referen Units Interpr Notes Date tion ce etation Range Collected by nurse? Y Hold specimen in OE? N Appeara CLEAR CLEAR No No No Nov 03 nce of informa informa informa 2016 Urine tion in tion in tion in 5:54 PM source source source data data data Bacteri 4+ O No No No Nov 03 a informa informa informa 2016 [Presen tion in tion in tion in 5:54 PM ce] in source source source Urine data data data sedimen t by Light microsc opy Bilirub NEGATIV NEG No No No Nov 03 in E informa informa informa 2016 [Presen tion in tion in tion in 5:54 PM ce] in source source source Urine data data data by Test strip Erythro TRACE-I NEG No No No Nov 03 cytes NTACT informa informa informa 2016 [Presen tion in tion in tion in 5:54 PM ce] in source source source Urine data data data Color YELLOW YELLOW No No No Nov 03 of informa informa informa 2017 Urine tion in tion in tion in 5:54 PM source source source data data data Glucose NEG No No No Nov 03 [Mass/vol informati informati informati 2016 5:54 ume] in on in on in on in PM Urine by source source source Test data data data strip Ketones NEGATIV NEG mg/dL No No Nov 03 E informa informa 2016 [Presen tion in tion in 5:54 PM ce] in source source Urine data data by Automat ed test strip Mucus 3+ NEG No Abnorma No Nov 03 [Presen informa l informa 2016 ce] in tion in tion in 5:54 PM Urine source source sedimen data data t by Light microsc opy Nitrite NEGATIV NEG No No No Nov 03 E informa informa informa 2016 [Presen tion in tion in tion in 5:54 PM ce] in source source source Urine data data data by Test strip pH of 5.0 - 8.5 No Normal No Nov 03 Urine informati informati 2016 5:54 on in on in PM source source data data Protein NEG mg/dL No No Nov 03 [Mass/vol informati informati 2016 5:54 ume] in on in on in PM Urine by source source Automated data data test strip Erythro 3-5 0 rbc/hpf No No Nov 03 cytes informa informa 2016 [Presen tion in tion in 5:54 PM ce] in source source Urine data data sedimen t by Light microsc opy Specific 1.005 - No Normal No Nov 03 gravity 1.030 informati informati 2017 5:54 of Urine on in on in PM source source data data Epithel 20-50 0 - 5 #/hpf No No Nov 03 ial informa informa 2016 cells.s tion in tion in 5:54 PM quamous source source data data [Presen ce] in Urine sedimen t by Microsc opy high power field Urobili 0.2 NEG E.U./dL No No Nov 03 nogen informa informa 2016 [Presen tion in tion in 5:54 PM ce] in source source Urine data data by Test strip Leukocy [10 O wbc/hpf No No Nov 03 gen wbc/hpf informa informa 2016 [#/volu ; 20 tion in tion in 5:54 PM me] in wbc/hpf source source Urine ] data data Urinalysis dipstick W Reflex Microscopic panel in Urine Observa Value Referen Units Interpr Notes Date tion ce etation Range Collected by nurse? Y Hold specimen in OE? N Appeara CLEAR CLEAR No No No Nov 03 nce of informa informa informa 2017 Urine tion in tion in tion in 5:54 PM source source source data data data Bilirub NEGATIV NEG No No No Nov 03 in E informa informa informa 2016 [Presen tion in tion in tion in 5:54 PM ce] in source source source Urine data data data by Test strip Erythro TRACE-I NEG No No No Nov 03 cytes NTACT informa informa informa 2016 [Presen tion in tion in tion in 5:54 PM ce] in source source source Urine data data data Color YELLOW YELLOW No No No Nov 03 of informa informa informa 2016 Urine tion in tion in tion in 5:54 PM source source source data data data Glucose NEG No No No Nov 03 [Mass/vol informati informati informati 2016 5:54 ume] in on in on in on in PM Urine by source source source Test data data data strip Ketones NEGATIV NEG mg/dL No No Nov 03 E informa informa 2016 [Presen tion in tion in 5:54 PM ce] in source source Urine data data by Automat ed test strip Mucus 3+ NEG No Abnorma No Nov 03 [Presen informa l informa 2016 ce] in tion in tion in 5:54 PM Urine source source sedimen data data t by Light microsc opy Nitrite NEGATIV NEG No No No Nov 03 E informa informa informa 2016 [Presen tion in tion in tion in 5:54 PM ce] in source source source Urine data data data by Test strip pH of 5.0 - 8.5 No Normal No Nov 03 Urine informati informati 2017 5:54 on in on in PM source source data data Protein NEG mg/dL No No Nov 03 [Mass/vol informati informati 2016 5:54 ume] in on in on in PM Urine by source source Automated data data test strip Specific 1.005 - No Normal No Nov 03 gravity 1.030 informati informati 2016 5:54 of Urine on in on in PM source source data data Urobili 0.2 NEG E.U./dL No No Nov 03 nogen informa informa 2016 [Presen tion in tion in 5:54 PM ce] in source source Urine data data by Test strip AFP Tetra Observa Value Referen Units Interpr Notes Date tion ce etation Range Results REPORT No No No No Oct 03 informa informa informa informa 2017 tion in tion in tion in tion in 5:08 PM source source source source data data data data Alpha-1-F No No No No Oct 03 etoprotei informati informati informati informati 2016 5:08 n on in on in on in on in PM [Mass/vol source source source source ume] in data data data data Serum or Plasma Alpha-1-F No No No No Oct 03 etoprotei informati informati informati informati 2016 5:08 n on in on in on in on in PM [Multiple source source source source of the data data data data median] adjusted in Serum or Plasma Choriogon No No No No Oct 03 adotropin informati informati informati informati 2016 5:08 on in on in on in on in PM [Units/vo source source source source lume] in data data data data Serum or Plasma Choriogon No No No No Oct 03 adotropin informati informati informati informati 2016 5:08 on in on in on in on in PM [Multiple source source source source of the data data data data median] adjusted in Serum or Plasma Estriol.u No No No No Oct 03 nconjugat informati informati informati informati 2016 5:08 ed on in on in on in on in PM [Mass/vol source source source source ume] in data data data data Serum or Plasma Estriol.u No No No No Oct 03 nconjugat informati informati informati informati 2016 5:08 ed on in on in on in on in PM [Multiple source source source source of the data data data data median] adjusted in Serum or Plasma Inhibin A No No No No Oct 03 informati informati informati informati 2016 5:08 [Mass/vol on in on in on in on in PM ume] in source source source source Serum data data data data Inhibin A No No No No Oct 03 informati informati informati informati 2016 5:08 [Multiple on in on in on in on in PM of the source source source source median] data data data data adjusted in Serum Neural No No No No Oct 03 tube informati informati informati informati 2016 5:08 defect on in on in on in on in PM risk in source source source source Fetus data data data data Trisomy No No No No Oct 03 risk informati informati informati informati 2017 5:08 in Fetus on in on in on in on in PM source source source source data data data data Second SCREEN No No No No Oct 03 trimest NEGATIV informa informa informa informa 2017 er quad E tion in tion in tion in tion in 5:08 PM source source source source materna data data data data l screen [interp retatio n] in Serum Narrati ve Trisomy No No No No Oct 03 risk informati informati informati informati 2017 5:08 based on on in on in on in on in PM maternal source source source source age in data data data data Fetus Trisomy No No No No Oct 03 risk informati informati informati informati 2017 5:08 in Fetus on in on in on in on in PM source source source source data data data data Trisomy No No No No Oct 03 risk informati informati informati informati 2017 5:08 based on on in on in on in on in PM maternal source source source source age in data data data data Fetus Second SCREEN No No No This Oct 03 trimest NEGATIV informa informa informa result 2017 er quad E tion in tion in tion in is 5:08 PM source source source screen materna data data data negativ l e for screen [interp OSB, retatio Down n] in Syndrom Serum eand Narrati Trisomy ve 18. The AFP MoM and patient specifi c risksca lculate d are based on the gestati onal age and the clinica linform ation provide d. This test can identif y up to 80% ofopen nueral tube defects . Closed neural tube defects and some open defects may not be detecte d by this test. Thecomb ination of materna l age, AFP, hCG, uE3, and DIAiden tifies 75-80% of Down Syndrom e. The combina tion ofmater nal age, AFP, hCG and uE3 identif ies 60% of Trisomy 18pregn ancies. The [employer] andGyne cologis ts recomme nds amnioce ntesis be offered to womenag e 35 and older. Recalcu lations are not recomme nded whenges tationa l dating by LMP and ultraso und are within 10 days.Co mments: Dorita valencia, PhD, FACMGDi jason, Biochem ical and Molecul ar Genetic sRefere nces: Availab le upon request .Multip les of Median Cutoffs for AFP Elevati ons:MARI ARANA 2.5IDD 2.0BLAC KS 2.8TWIN S 4.5DSR CUTOFF 1:270T1 8 CUTOFF 1:100AB REVIATI ON DEFINIT IONS:ID D- INSULIN DEP DIABETE SOSBR- OPEN SPINA BIFIDA RISKDSR - DOWN SYNDROM E RISKT18 - TRISOMY 18DOWN SYNDROM E AND TRISOMY 18 SCREENI NG ARE CONSIDE REDINVE STIGATI ONAL.FO R FURTHER INQUIRI ES CONTACT [facility] [id number] NE. Gestation No No No No Oct 03 al age informati informati informati informati 2016 5:08 on in on in on in on in PM source source source source data data data data Gestati ALEXANDRE No No No No Oct 03 onal informa informa informa informa 2017 age 015 tion in tion in tion in tion in 5:08 PM method source source source source data data data data Age at No No No No Oct 03 delivery informati informati informati informati 2016 5:08 on in on in on in on in PM source source source source data data data data Mother' CAUCASI No No No No Oct 03 s race AN informa informa informa informa 2017 tion in tion in tion in tion in 5:08 PM source source source source data data data data Body No No No No Oct 03 weight informati informati informati informati 2017 5:08 on in on in on in on in PM source source source source data data data data Insulin NO No No No No Oct 03 informa informa informa informa 2017 depende tion in tion in tion in tion in 5:08 PM nt source source source source diabete data data data data s mellitu s [Presen ce] Multipl NO No No No No Oct 03 e informa informa informa informa 2017 preganc tion in tion in tion in tion in 5:08 PM y source source source source data data data data
--- OUTSIDE RECORDS SUMMARY | 2017-02-27 03:03 | External Medical Summary Rpt ---
[...] than 35 weeks for positive results obtained [id number] weeks and 30 weeks,6 days of gestation [...] data data olume] in Serum or Plasma [id number]-Tuxiukmsxsnmo.placental [Presence] in Vaginal fluid Observa Value Referen [...] ES CONTACT [facility] [id number] NE. Gestation No No No No Oct [...]
[2017-02-27 06:24] LABS: HEMOGLOBIN 11.2 g/dL (12.2-16.2); LYMPH # 2.6 K/mm3 (0.7-4.5)
[2017-02-27 06:37] VITALS: BP 107/62
[2017-02-27 06:40] LABS: BUN 8 mg/dL (7-18); GFR (ESTIMATED) 104 ML/MIN (59-)
[2017-02-27 07:03] LABS: ABO BLOOD TYPE AB; RH BLOOD TYPE POSITIVE
[2017-02-27] MEDS ORDERED: FERROUS SULFAT200 M1 PO (07:47)
--- NOTE | 2017-02-27 08:30 | Operative Note ---
Procedure/Operative Record Date of Procedure: 02/27/17 Referring physician: Dr. Sauer Pre-op diagnosis: 1. Term intrauterine . 2. Previous section. Post-op diagnosis: 1. Term intrauterine , delivered. 2. Previous section. 3. 9/9, 6 lbs. 5 oz., 18 inch female , born at 0749. Procedure performed: Repeat low transverse cervical section. Surgeon: Isaac Buck Anodize Machine Operator(s): NORBERTO Viramontes Anesthesia: Spinal, DIRECTOR OF SUSTAINABLE DESIGN Juan Francisco Indications: 1. Term intrauterine . 2. Previous section. Description of procedure: After the patient was prepped and draped in usual fashion and spinal anesthesia was Mr., a low Pfannenstiel incision was made across the midline, through the previous incision, and the fat and fascia were in usual fashion, bleeders being clamped and coagulated along the way. The peritoneum was entered with Metzenbaum scissors, and extended above and below. The bladder peritoneum was sharply and bluntly dissected from the area of incision, and the bladder was protected with a bladder blade. The uterus was entered in a low transverse fashion with a knife, and the incision to bluntly, bilaterally. The amniotic sac was ruptured for clear fluid. The baby was found to be in the STACEY position of the vertex and, with appropriate fundal pressure, the head was easily delivered. There was no meconium, nor was there a nuchal cord. The baby's naso-and oropharynx were bulb suctioned, and the baby cried spontaneously on the abdomen, as was delivered. The cord was clamped and cut, 3 vessels were noted to be within the cord, and cord blood was obtained. The cord pH was 7.40. Handed into the arms of the attending coordinator of health services, Dr. Austin, who assigned Apgars of 9 at 1 minute and 9 at 5 minutes to this 6 lbs. 5 oz., 18 inch female infant, born at 0749. The placenta was delivered manually, intact at 0750. The baby was taken to the nursery in excellent condition. A ring forceps was used to assure adequate drainage to the cervix; this was then passed off the field, as an unsterile instrument. The uterus was closed in 2 layers, the first a running locked suture of #1 Vicryl as an endometrial layer, the second a running unlocked suture of #1 Vicryl as a myometrial layer, imbricating over the first. The bladder peritoneum was closed with a running unlocked suture of 2-0 Vicryl. Blood and clots within swept from the gutters, and the tubes and ovaries were inspected and found to be normal. The peritoneum was grasped with 3 Adrianne clamps , and closed with a running semi-locked suture of 0 Vicryl. The muscle was approximated with a running unlocked suture of 0 Vicryl. The fascia was closed with a running locked suture Vicryl. The subcutaneous fat and Luis's fascia were closed with a running unlocked suture of 2-0 Vicryl. The skin was closed with a subcuticular suture of 3-0 Vicryl, and appropriately dressed. The sponge and needle counts correct. The urine was clear in the Baptiste catheter. This will blood loss was 350 mL. A pelvic examination at the close of the procedure express blood and clots from the involuting uterus, with IV Pitocin running. The patient tolerated the procedure well, and was taken to PACU in excellent condition. Her blood type is AB positive. Her rubella titer is immune. She plans to breast-feed. EBL (ml): 350 Complications: None Specimens: None at 0830
--- NOTE | 2017-02-27 08:32 | Anesthesia Record ---
Anesthesia Record Part I Total IV fluids: 500 EBL (ml): 250 Urine Output: 50 B/P: 134/79 % SaO2: 100 Pulse: 85 Resps: 20 Temp: 97.3 Patient is: Awake, Stable Stable to PACU at: 0827 at 0831
--- NOTE | 2017-02-27 08:32 | Anesthesia Record ---
Anesthesia Record Part II Discharge time: 856 Destination: OB PACU nurse assessment review? Yes Patient is: Awake, Stable Anesthesia complications? No at 0832
[2017-02-27 09:35] VITALS: BP 123/81
[2017-02-27 11:16] LABS: URINE BILIRUBIN - DIPSTICK NEGATIVE (NEG); URINE BLOOD NEGATIVE (NEG)
[2017-02-27 11:29] LABS: URINE SQUAMOUS CELLS OCC #/hpf (0-5)
--- NOTE | 2017-02-27 13:15 | ACUTE CARE PROGRESS NOTE (QUA) ---
Progress Notes Subjective Date 02/27/17 Time 1314 Note This is day of surgery. Patient is afebrile. Vital signs stable. Wound clean. Abdomen soft. Uterine fundus involuting well. Impression: Stable. Assessment/Plan This inpt stay is expected to cross 2 MNs from start of care Yes () at 1310
[2017-02-27 20:21] VITALS: BP 106/66
--- NOTE | 2017-02-28 06:18 | ACUTE CARE PROGRESS NOTE (QUA) ---
Progress Notes Subjective Date 02/28/17 Time 0617 Note This is /postop day number 1. The patient is afebrile. Vital signs stable. Wound clean. Abdomen soft. Lochia normal. Uterine fundus involuting well. Nursing well. Impression: Stable. Assessment/Plan This inpt stay is expected to cross 2 MNs from start of care Yes () at 0618
[2017-02-28 07:02] LABS: HEMOGLOBIN 8.9 g/dL (12.2-16.2)
[2017-02-28 07:25] VITALS: BP 104/58
[2017-02-28 21:04] VITALS: BP 107/58
--- NOTE | 2017-03-01 07:40 | ACUTE CARE PROGRESS NOTE (QUA) ---
Progress Notes Subjective Date 03/01/17 Time 0739 Note This is /postop day number 2. The patient is afebrile. Vital signs stable. Wound clean. Abdomen soft. Lochia normal. Uterine fundus involuting well. Hemoglobin 8.9 g, but clinically stable. Impression: Stable. Patient is anxious for early discharge and will be discharged this afternoon. Assessment/Plan This inpt stay is expected to cross 2 MNs from start of care Yes () at 0739
[2017-03-01] MEDS ORDERED: HYDROCODONE-APA1 TA1 PO (07:45)
--- NOTE | 2017-03-01 07:50 | DISCHARGE SUMMARY STANDARD ---
Discharge Summary Date of admission: 02/27/17 Date of discharge: 03/01/17 Patient condition: Stable Discharge diagnosis (es): 1. Term intrauterine , delivered. 2. Previous section. 3. Anemia. Hospital course: This 21-year-old 2, now para 2, AB 0 white female was admitted at 39-2/7 weeks for repeat section. Her hemoglobin on admission was 11.2 g. On the date of admission, she was taken to the operating room, where she underwent a repeat low transverse cervical section under spinal anesthesia, without complications. The baby was an 9/9, 6 lbs. 5 oz., 18 inch female , born at 0749 on 02[birth year]/17. The baby is breast-feeding, and has done well. and postoperatively, the patient has done well. She is eating and ambulating, and has had a bowel movement. Her wound is clean. Her abdomen is soft. Her lochia is normal. Her uterine fundus has involuted well. Her hemoglobin is 8.9 g, but she is clinically stable. She is not a smoker. She is anxious for early discharge, and so will be discharged later today on iron 3 times a day and vitamins, and on Percocet 5/325 (number 30), 1 by mouth every 6 hours when necessary pain. She is given appropriate instructions as to diet, exercise, and wound care, and she is to return the office in 2 weeks for follow-up. Her blood type is AB positive. Her rubella titer is immune. at 0770
[2017-03-01 08:07] VITALS: BP 99/61
--- NOTE | 2017-03-01 09:35 | PHARMACY CLINIC NOTE ---
Patient Demographics Patient Demographics Admission date: 02/27/17 Date: 03/01/17 Time: 0934 Allergies Coded Allergies: hydrocodone (From LORTAB) (Intermediate, 02/27/17) metoclopramide (From REGLAN) (Mild, 02/27/17) montelukast (From SINGULAIR) (Mild, 02/27/17) HEIGHT- FT: 5 IN: 2.00 K.122 VTE General Information Disclaimer The following section includes nursing documentation that has been pulled in for pharmacy review. VTE prophylaxis NQF [id number] VTE prophylaxis ordered? Yes Type of prophylaxis/treatment: ICD at 0934
[2017-03-01] MEDS ORDERED: PERCOCET 5/3251 EACH PO (17:07)
== END 2017-03-01 18:45 | disposition home or self-care (01) | DRG 766 ==
LOC: OB 02:37 → EDSTATUS 07:30 → OB 07:30 → SDC 07:30 → OB 03-01 18:45
PROVIDERS: Obstetrics & Gynecology
PROC: 10D00Z1 Extraction of Products of Conception, Low, Open Approach (ICD-10-PCS; principal; 2017-02-27 07:30)
DX: O34.211 Maternal care for low transverse scar from previous cesarean delivery (principal); N85.8 Other specified noninflammatory disorders of uterus; Z3A.39 39 weeks gestation of pregnancy; Z37.0 Single live birth
CPT/HCPCS: J2405

== ENCOUNTER → 2017-03-04 | Outpatient (CLI) | payer OTHER, MEDICAID ==
[~2017-03-04] MED LIST changes: +FERROUS SULFAT200 M1 PO; +HYDROCODONE-APA1 TA1 PO; +PERCOCET 5/3251 EACH PO
[2017-03-04 12:54] LABS: HEMOGLOBIN 9.3 g/dL (12.2-16.2); LYMPH # 1.3 K/mm3 (0.7-4.5); LYMPH % 13.9 % (10-50.0)
[2017-03-04 14:34] LABS: BUN 10 mg/dL (7-18)
[2017-03-04 14:44] LABS: GFR (ESTIMATED) 104 ML/MIN (59-)
== END ==
LOC: LAB 12:39
PROVIDERS: Nurse Practitioner Family
DX: G97.1 Other reaction to spinal and lumbar puncture (principal)